=== PATIENT | female | born 1940 | race Caucasian/White ===

== ENCOUNTER → 2018-04-28 | Outpatient (CLI) | payer MEDICARE, OTHER ==
[~2018-04-28] MED LIST: ASPIR 8181 MG PO; BACTRIM DS TAB1 EACH PO; CEPHALEXIN 500500 M3 PO; COZAAR 25 MG TA25 M1 PO; DILANTIN100 MG PO; GLUCOTROL5 MG PO; HYDRALAZINE 2525 MG PO; IRON325 PO; LEVOTHYROXINE 0.1 MG PO; LOMOTIL TABLET1 EACH PO; MAG-OXIDE400 MG PO; NORCO 5-325 TA1 EACH PO; NORTRIPTYLINE H10 M2 PO; RISPERDAL0.25 MG PO; RISPERIDONE0.5 MG PO; [UNRECOGNIZED DRUG - OTHER]
== END ==
LOC: RAD 12:03
DX: M43.8X4 Other specified deforming dorsopathies, thoracic region (principal); R05 Cough

== ENCOUNTER → 2018-10-28 | Outpatient (CLI) | payer OTHER | LOC: RAD 15:43 | DX: M47.818 Spondylosis without myelopathy or radiculopathy, sacral and sacrococcygeal region (principal); M43.8X6 Other specified deforming dorsopathies, lumbar region; R14.0 Abdominal distension (gaseous) ==

== ENCOUNTER → 2018-12-20 | Outpatient (CLI) | payer OTHER | LOC: RAD 10:32 | DX: R91.8 Other nonspecific abnormal finding of lung field (principal); J98.11 Atelectasis; M40.294 Other kyphosis, thoracic region; M43.8X4 Other specified deforming dorsopathies, thoracic region; M43.8X6 Other specified deforming dorsopathies, lumbar region ==

== ENCOUNTER → 2019-01-13 | Outpatient (CLI) | payer OTHER ==
[2019-01-13 08:23] LABS: ABSOLUTE NEUTROPHILS 4.8 thou/uL (1.4-8.2); EOSINOPHILS 1.1 % (0.0-3.0); HEMATOCRIT 36.5 % (37.0-47.0); HEMOGLOBIN 12.3 gm/dL (12.0-15.0); LYMPHOCYTES 20.7 % (24.0-44.0); MCH 32.4 pg (26.0-34.0); MCHC 33.7 g/dL (28.0-37.0); MCV 96.2 fL (80.0-100.0); MONOCYTES 5.4 % (1.0-8.0); PLATELET COUNT 274 thou/uL (150-400); POLYS 71.8 % (36.0-66.0); RBC 3.79 mil/uL (4.20-5.00); RDW 13.5 % (10.5-14.5); WBC 6.7 thou/uL (4.0-11.0)
[2019-01-13 08:29] LABS: CALCIUM 9.5 mg/dL (8.5-10.1); CREATININE 0.7 mg/dL (0.6-1.0); POTASSIUM 4.2 mmol/L (3.5-5.1)
[2019-01-13 08:35] LABS: ALBUMIN 3.4 g/dL (3.4-5.0); TOTAL BILIRUBIN 0.3 mg/dL (<0.1-1.0); TOTAL PROTEIN 8.1 g/dL (6.4-8.2)
== END ==
LOC: CAT 07:42
PROVIDERS: Family Medicine
DX: S32.000S Wedge compression fracture of unspecified lumbar vertebra, sequela (principal); K42.9 Umbilical hernia without obstruction or gangrene; E11.9 Type 2 diabetes mellitus without complications; M51.36 Other intervertebral disc degeneration, lumbar region; Z87.81 Personal history of (healed) traumatic fracture; M43.8X4 Other specified deforming dorsopathies, thoracic region; M43.8X6 Other specified deforming dorsopathies, lumbar region; M48.062 Spinal stenosis, lumbar region with neurogenic claudication; M51.26 Other intervertebral disc displacement, lumbar region; M47.816 Spondylosis without myelopathy or radiculopathy, lumbar region; M47.817 Spondylosis without myelopathy or radiculopathy, lumbosacral region; I70.0 Atherosclerosis of aorta; M47.815 Spondylosis without myelopathy or radiculopathy, thoracolumbar region; J98.11 Atelectasis; X58.XXXS Exposure to other specified factors, sequela